=== PATIENT | male | born 1995 | race Caucasian/White ===

== ENCOUNTER 2017-08-11 10:31 | Emergency (ER) | payer MEDICAID ==
[~2017-08-11] VITALS: Ht 172.7 cm; Wt 61.2 kg
[~2017-08-11 10:31] MED LIST: GLU850 PO
[2017-08-11 10:34] VITALS: BP_SYST 111
[2017-08-11] MEDS ORDERED: NACL 0.9% 1,000 ML IV ONE ×3 (10:41→13:15)
[2017-08-11 11:11] LABS: BASOPHILS % (AUTO) 0.3 % (0.0-2.0); EOSINOPHILS # (AUTO) 0.1 K/uL (0.0-0.4); EOSINOPHILS % (AUTO) 0.5 % (0.0-4.0); HEMATOCRIT 50.5 % (36-54); HEMOGLOBIN 16.6 g/dL (14.0-18.0); LYMPHOCYTES # (AUTO) 1.9 K/uL (1.0-5.5); LYMPHOCYTES % (AUTO) 17.3 % (20.5-51.5); MEAN CORPUSCULAR HEMOGLOBIN 31 pg (27-31); MEAN CORPUSCULAR HGB CONC 33 % (32-36); MEAN CORPUSCULAR VOLUME 95 fL (79.0-98.0); MONOCYTES # (AUTO) 0.3 K/uL (0.0-1.0); MONOCYTES % (AUTO) 2.5 % (1.7-9.3); NEUTROPHILS # (AUTO) 8.8 K/uL (1.8-7.7); NEUTROPHILS % (AUTO) 79.4 % (40.0-70.0); PLATELET COUNT (AUTO) 386 K/uL (130-430); RED BLOOD CELL COUNT(AUTO) 5.34 MIL/uL (4.2-6.2); RED CELL DISTRIBUTION WIDTH 10.6 % (9.0-15.0); WHITE BLOOD COUNT (AUTO) 11.1 K/uL (4.8-10.8)
[2017-08-11 11:22] LABS: CALCIUM 9.6 mg/dL (8.4-11.0); CREATININE 0.88 mg/dL (0.55-1.30)
[2017-08-11 11:27] LABS: ALBUMIN 4.5 g/dL (3.4-4.8); TOTAL BILIRUBIN 0.8 mg/dL (0.0-1.0)
[2017-08-11 11:45] LABS: INR 1.1 (0.80-1.20); PROTHROMBIN TIME 10.9 SECS (9.5-12.5)
[2017-08-11] MEDS ORDERED: INSULIN REGULAR, HUMAN 10 UNITS/0.1 ML INJ IVP ONE ×2 (12:00)
[2017-08-11 12:41] LABS: BILIRUBIN,URINE NEGATIVE (NEGATIVE); BLOOD, URINE NEGATIVE (NEGATIVE); CLARITY/URINE CLEAR (CLEAR); COLOR,URINE YELLOW (YELLOW); GLUCOSE,URINE 2+ (NEGATIVE); KETONES,URINE 3+ (NEGATIVE); LEUKOCYTE ESTERASE ,URINE NEGATIVE (NEGATIVE); NITRITE, URINE NEGATIVE (NEGATIVE); PH,URINE 5.5 (5.0-8.0); PROTEIN URINE NEGATIVE (NEGATIVE); UROBILINOGEN,URINE 0.2 (0.2-1.0)
[2017-08-11 12:49] LABS: BACTERIA,URINE FEW /HPF (None Seen); RBC,URINE 0-3 /HPF (0-3); WBC,URINE 0-3 /HPF (0-3)
[2017-08-11 12:50] LABS: MUCUS,URINE 1+ /LPF (None Seen)
[2017-08-11 13:51] LABS: CALCIUM 8.8 mg/dL (8.4-11.0); CREATININE 0.73 mg/dL (0.55-1.30)
[2017-08-11 14:49] VITALS: BP_SYST 115
== END 2017-08-11 14:49 | disposition home or self-care (01) ==
LOC: SED 10:31
DX: E11.43 Type 2 diabetes mellitus with diabetic autonomic (poly)neuropathy (principal); K31.84 Gastroparesis; E86.0 Dehydration
CPT/HCPCS: 36415; 80048; 80053; 81000; 82150; 82962; 83690; 85025; 85610; 85730; 96361; 96374; 99284; J1815; J7030

== ENCOUNTER 2018-10-09 02:32 | Inpatient (IN) | payer MEDICAID ==
[~2018-10-09] VITALS: Ht 172.7 cm; Wt 56.7 kg
[2018-10-09 02:33] VITALS: BP_SYST 135
--- NOTE | 2018-10-09 02:40 | NUR ---
Patient to ER bed 8 to gown for evaluation. Side rails up. Report given from DERECK Mclean.
--- NOTE | 2018-10-09 02:47 | NUR ---
ER Dr. Joyner at bedside examining patient.
--- NOTE | 2018-10-09 02:50 | NUR ---
Ignacia lui in ED - 10/09/18 at 0250 by [email or web address] MYKEL Heck at bedside examining patient.
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
[2018-10-09] MEDS ORDERED: NACL 0.9% 1,000 ML IV SCH (02:54)
[2018-10-09] MEDS ORDERED: INSULIN REGULAR, HUMAN 10 UNITS/0.1 ML INJ IVP ONE ×2 (03:00→04:45)
--- NOTE | 2018-10-09 03:22 | NUR ---
Note sania in EDM - 10/09/18 at 0645 by [email or web address] Pt medicated with novolin R IVP and fluids per MD order. Tolerated well. Will cont. to monitor.
--- NOTE | 2018-10-09 03:22 | NUR ---
Pt medicated with novolin R 10 units IVP and fluids per MD order. Tolerated well. Will cont. to monitor.
[2018-10-09] MEDS ORDERED: INSULIN REGULAR, HUMAN 10 UNITS/0.1 ML INJ ONE ×2 (03:27→05:09)
[2018-10-09 03:28] LABS: BILIRUBIN,URINE NEGATIVE (NEGATIVE); BLOOD, URINE NEGATIVE (NEGATIVE); CLARITY/URINE CLEAR (CLEAR); COLOR,URINE YELLOW (YELLOW); GLUCOSE,URINE 3+ (NEGATIVE); KETONES,URINE 1+ (NEGATIVE); LEUKOCYTE ESTERASE ,URINE NEGATIVE (NEGATIVE); NITRITE, URINE NEGATIVE (NEGATIVE); PROTEIN URINE NEGATIVE (NEGATIVE); UROBILINOGEN,URINE 0.2 (0.2-1.0)
--- NOTE | 2018-10-09 03:34 | NUR ---
RT at bedside obtaining ABG specimen.
[2018-10-09 03:37] LABS: BASOPHILS # (AUTO) 0.4 K/uL (0.0-0.2); BASOPHILS % (AUTO) 2.5 % (0.0-2.0); EOSINOPHILS # (AUTO) 0.1 K/uL (0.0-0.4); EOSINOPHILS % (AUTO) 0.8 % (0.0-4.0); HEMATOCRIT 44.2 % (36-54); HEMOGLOBIN 14.8 g/dL (14.0-18.0); LYMPHOCYTES # (AUTO) 2.6 K/uL (1.0-5.5); LYMPHOCYTES % (AUTO) 17.6 % (20.5-51.5); MEAN CORPUSCULAR HEMOGLOBIN 32 pg (27-31); MEAN CORPUSCULAR HGB CONC 34 % (32-36); MEAN CORPUSCULAR VOLUME 95 fL (79.0-98.0); MONOCYTES # (AUTO) 1.1 K/uL (0.0-1.0); MONOCYTES % (AUTO) 7.2 % (1.7-9.3); NEUTROPHILS # (AUTO) 10.5 K/uL (1.8-7.7); NEUTROPHILS % (AUTO) 71.9 % (40.0-70.0); PLATELET COUNT (AUTO) 398 K/uL (130-430); RED BLOOD CELL COUNT(AUTO) 4.63 MIL/uL (4.2-6.2); RED CELL DISTRIBUTION WIDTH 12.4 % (9.0-15.0); WHITE BLOOD COUNT (AUTO) 14.7 K/uL (4.8-10.8)
[2018-10-09 03:54] LABS: ACETONE, SERUM MODERATE (NEGATIVE)
[2018-10-09 03:56] LABS: ANION GAP 16 (5-15); CALCIUM 8.6 mg/dL (8.4-11.0); CHLORIDE 94 mmol/L (98-107); CREATININE 0.99 mg/dL (0.55-1.30); POTASSIUM 3.9 mmol/L (3.5-5.1); SODIUM SERUM 130 mmol/L (136-145); UREA NITROGEN, BLOOD 11 mg/dL (8-21)
[2018-10-09 03:57] LABS: ALANINE AMINOTRANSFERASE 38 U/L (12-78); ALBUMIN 3.7 g/dL (3.4-4.8); ASPARTATE AMINOTRANSFERASE 27 U/L (10-37); PHOSPHORUS 3.5 mg/dL (2.7-4.5); TOTAL BILIRUBIN 0.6 mg/dL (0.0-1.0)
[2018-10-09 03:58] LABS: GFR AFRICAN AMERICAN 122 mL/min (>90)
[2018-10-09 03:59] LABS: GLUCOSE 571 mg/dL (70-99)
[2018-10-09 04:02] LABS: BACTERIA,URINE FEW /HPF (None Seen); RBC,URINE 0-3 /HPF (0-3); WBC,URINE 0-3 /HPF (0-3)
--- NOTE | 2018-10-09 05:11 | NUR ---
Note sania in EDM - 10/09/18 at 0645 by [email or web address] Pt medicated with R novolin insulin IVP per MD order. Tolerating well. WIll cont. to monitor.
--- NOTE | 2018-10-09 05:11 | NUR ---
Pt medicated with R novolin insulin 5 units IVP per MD order. Tolerating well. WIll cont. to monitor.
[2018-10-09 05:32] LABS: CALCIUM 7.8 mg/dL (8.4-11.0); CREATININE 0.98 mg/dL (0.55-1.30); POTASSIUM 3.6 mmol/L (3.5-5.1)
--- NOTE | 2018-10-09 06:00 | NUR ---
Dr. Joyner on the phone speaking with Dr. Jones in regards to admission.
[2018-10-09] MEDS ORDERED: INSU100I30 SQ (06:14)
[2018-10-09] MEDS ORDERED: INSU300I SQ (06:14)
--- NOTE | 2018-10-09 06:15 | NUR ---
Note sania in EDM - 10/09/18 at 0652 by [email or web address] Patient will be admitted to care of DR. Jerome. Admitted to Med surg unit. Will go to room 126B. Belongings list completed. Summary report printed. Report will be given at bedside.
--- NOTE | 2018-10-09 06:25 | NUR ---
Transfer to [facility]. Licensed nurse present. IV present no signs or symptoms of infiltration.
--- NOTE | 2018-10-09 06:25 | NUR ---
ADMISSION NOTE Received patient from ER via sunny, received report from DERECK Baker. Patient admitted with diagnosis of hyperglycemia and dehydration. Patient oriented to hospital routine, call light, toileting and safety-patient verbalized understanding.
[2018-10-09] MEDS ORDERED: INSULIN REGULAR, HUMAN 100 UNITS/ML, 10 ML VIAL (novoLIN R) SUBCUT PRN (06:30)
[2018-10-09] MEDS ORDERED: KCL 20 mEq in 0.45% NS 1000 mL 1,000 ML IV ONE (06:30)
[2018-10-09 06:43] VITALS: BP_SYST 132
--- NOTE | 2018-10-09 07:07 | NUR ---
CONSULTATION PAGED REASON FOR CONSULTATION:HYPERGLYCEMIA WAS CONSULT CALLED?Y PERSON WHO WAS NOTIFIED:WIN CONSULTING PHYSICIAN:MICHELA SANDERS [employer] CONSULTANT SPECIALTY:ENDOCRINE [employer] CONSULTANT PHONE NUMBER:[phone] ORDERING PHYSICIAN:CARYN SHAFFER
[2018-10-09 08:00] VITALS: BP_SYST 132
--- NOTE | 2018-10-09 08:00 | NUR ---
AM NOTES IN bed, awake. complain of generalized pain/soreness on his body. IVF from ER infusing at this time. Oriented to room set up and call light use. safety precaution observed. call light in reach. will monitor.
--- NOTE | 2018-10-09 09:00 | NUR ---
notes- pt is eating his breakfast at this time.
--- NOTE | 2018-10-09 10:00 | NUR ---
notes assisted to the bathroom and voided. no distress noted.
--- NOTE | 2018-10-09 10:01 | NUR ---
IVF- still waiting for the IV fluids from the pharmacy at this time.
--- NOTE | 2018-10-09 10:45 | NUR ---
PAGED DR. VINSON FOR PATIENT ADAM, JOSE. [phone]
--- NOTE | 2018-10-09 10:59 | NUR ---
notes- Paged DR. jeff re- pain medication.
--- NOTE | 2018-10-09 11:16 | NUR ---
notes Blood sugar is 507, pt is awake, alert and oriented. waiting for DR. Jones to call back. will give insulin as ordered.
--- NOTE | 2018-10-09 11:54 | NUR ---
Notes- spoke with Dr. Jones and made aware of blood sugar of 507 and was given 12 units of regular insulin. MD ordered to give additional 3 units of regular insulin.
[2018-10-09] MEDS ORDERED: KETOROLAC TROMETHAMINE 15 MG VIAL IVP PRN (12:00)
[2018-10-09] MEDS ORDERED: INSULIN REGULAR, HUMAN 100 UNITS/ML, 10 ML VIAL SUBCUT ONE (12:00)
[2018-10-09 12:06] VITALS: BP_SYST 131
--- NOTE | 2018-10-09 14:20 | NUR ---
MD ROUNDS SEEN BY DR. HO AT BEDSIDE.
[2018-10-09] MEDS: POTASSIUM CHLORIDE 20 MEQ in 0.45% NACL 1,000 ML IV SCH ×3 (14:45→18:41)
--- NOTE | 2018-10-09 15:50 | NUR ---
NOTES- RESTING, FAMILY AT BEDSIDE. PAIN IS CONTROLLED. NO DISTRESS NOTED.
[2018-10-09 16:46] VITALS: BP_SYST 126
[2018-10-09] MEDS: INSULIN ASPART 100 UNITS/ML, 10 ML VIAL SUBCUT SCH (17:00)
--- NOTE | 2018-10-09 17:40 | NUR ---
Notes- blood sugar is 74. hold insulin at this time. pt is eating dinner at this time.
[2018-10-09 17:48] LABS: ALBUMIN 3.3 g/dL (3.4-4.8); CALCIUM 8.2 mg/dL (8.4-11.0); CREATININE 0.65 mg/dL (0.55-1.30); POTASSIUM 3.2 mmol/L (3.5-5.1); TOTAL BILIRUBIN 0.8 mg/dL (0.0-1.0)
--- NOTE | 2018-10-09 18:09 | NUR ---
PAGED PAGED DOCTOR HO
--- NOTE | 2018-10-09 18:20 | NUR ---
Notes- spoke to Dr. Bradford and made aware of labs results. new orders received.
[2018-10-09] MEDS ORDERED: POTASSIUM CHLORIDE 20 MEQ TAB.PRT.SR PO ONE (18:30)
[2018-10-09] MEDS ORDERED: INSULIN ASPART 100 UNITS/ML, 10 ML VIAL SUBCUT ONE (19:00)
--- NOTE | 2018-10-09 19:02 | NUR ---
NOTES- IN BED, WATCHING TV. FAMILY AT BEDSIDE. NO COMPLAINTS. NEEDS ATTENDED. ENDORSE
--- NOTE | 2018-10-09 19:20 | NUR ---
Initial Note Received patient awake, alert and oriented with family at the bedside. No SOB noted. Denies any pain or n/v at this time. Skin intact, no peripheral edema noted. IVF infusing. Ambulates well with steady gait. Call light within reach. Bed alarm refused and at lowest position at all times. Care and monitoring will be provided. Needs attended. Kept warm and comfortable.
[2018-10-09 20:00] VITALS: BP_SYST 138
--- NOTE | 2018-10-09 20:20 | NUR ---
RN Note Latest blood sugar was 119, no coverage given. Given sugar free jello per patient's request. Family at the bedside. No complaints at this time. Needs attended.
--- NOTE | 2018-10-09 22:00 | NUR ---
RN Note Family left an hour ago. Patient sleeping at this time. No SOB or grimacing noted.
[2018-10-10 00:10] VITALS: BP_SYST 117
[2018-10-10] MEDS: POTASSIUM CHLORIDE 20 MEQ in 0.45% NACL 1,000 ML IV SCH ×3 (01:00→15:32)
--- NOTE | 2018-10-10 01:00 | NUR ---
RN Note Asleep, moves/turns occasionally. Family at the bedside. No distress noted. IVF infusing.
--- NOTE | 2018-10-10 03:30 | NUR ---
RN Note Patient sleeping comfortably in bed. IVF infusing. No signs of acute distress at this time. Repositions himself.
[2018-10-10 06:19] LABS: ANION GAP 7 (5-15); CALCIUM 7.8 mg/dL (8.4-11.0); CHLORIDE 106 mmol/L (98-107); CREATININE 0.54 mg/dL (0.55-1.30); GLUCOSE 152 mg/dL (70-99); PHOSPHORUS 4.6 mg/dL (2.7-4.5); POTASSIUM 3.9 mmol/L (3.5-5.1); SODIUM SERUM 137 mmol/L (136-145); UREA NITROGEN, BLOOD 7 mg/dL (8-21)
[2018-10-10 06:33] LABS: BASOPHILS % (AUTO) 0.4 % (0.0-2.0); EOSINOPHILS # (AUTO) 0.2 K/uL (0.0-0.4); EOSINOPHILS % (AUTO) 1.7 % (0.0-4.0); HEMATOCRIT 37.7 % (36-54); HEMOGLOBIN 12.8 g/dL (14.0-18.0); LYMPHOCYTES # (AUTO) 4.2 K/uL (1.0-5.5); LYMPHOCYTES % (AUTO) 40.7 % (20.5-51.5); MEAN CORPUSCULAR HEMOGLOBIN 32 pg (27-31); MEAN CORPUSCULAR HGB CONC 34 % (32-36); MEAN CORPUSCULAR VOLUME 95 fL (79.0-98.0); MONOCYTES # (AUTO) 0.9 K/uL (0.0-1.0); MONOCYTES % (AUTO) 8.5 % (1.7-9.3); NEUTROPHILS % (AUTO) 48.7 % (40.0-70.0); PLATELET COUNT (AUTO) 302 K/uL (130-430); RED BLOOD CELL COUNT(AUTO) 3.98 MIL/uL (4.2-6.2); RED CELL DISTRIBUTION WIDTH 12.5 % (9.0-15.0); WHITE BLOOD COUNT (AUTO) 10.3 K/uL (4.8-10.8)
[2018-10-10] MEDS: INSULIN ASPART 100 UNITS/ML, 10 ML VIAL (NovoLOG) SUBCUT PRN ×2 (06:38→12:21)
[2018-10-10] MEDS: INSULIN ASPART 100 UNITS/ML, 10 ML VIAL SUBCUT SCH ×2 (06:39→12:20)
--- NOTE | 2018-10-10 06:50 | NUR ---
End Note Afebrile. VS stable. No complain of SOB, n/v or pain throughout the night. Family at the bedside. Self reposition. Ambulates to the bathroom with minimal assist and with steady gait. IVF infusing. Labs today. Latest blood sugar was 156, coverage given plus the scheduled insulins. Given sandwich at the time insulin was given. Needs attended. Care and monitoring provided per protocol. Call light within reach. Bed alarm refused and bed at lowest position at all times. Kept warm and comfortable.
[2018-10-10 06:52] LABS: GFR AFRICAN AMERICAN 245 mL/min (>90)
[2018-10-10 07:10] LABS: ACETONE, SERUM NEGATIVE (NEGATIVE)
--- NOTE | 2018-10-10 07:20 | NUR ---
Initial note: Patient is sleeping comfortably with family at bedside, no sign of distress, on 0.45% NS +20mEq KCL IVF @ 150 ml/hr infusing via Rt. AC # 20G, no sign of infiltration.
[2018-10-10] MEDS ORDERED: ENOXAPARIN SODIUM 30 MG/0.3 ML SYRINGE SUBCUT SCH (09:00)
--- NOTE | 2018-10-10 10:26 | NUR ---
RN round: Patient is alert, oriented, resting on bed comfortably, denies any pain or discomfort.
[2018-10-10 12:47] VITALS: BP_SYST 102
--- NOTE | 2018-10-10 15:35 | NUR ---
Dietitian Recommendations * Recommend continuing CCHO diet per MD * FNS dept will offer 3 snacks per day in between meals * Encourage nutrient intake to prevent further wt loss LP, RD Please refer to Nutrition Assessment for details.
[2018-10-10 16:38] VITALS: BP_SYST 110
--- NOTE | 2018-10-10 17:00 | NUR ---
ROUND: DR. HO MAKES ROUND. INFORM HIM ABOUT BS RESULTS, AND HE HAS CHANGED NEW DOSES OD INSULIN, AND ALSO DECREASE IVF TO 100 ML/HR.
--- NOTE | 2018-10-10 18:51 | NUR ---
CLOSING NOTE: PATIENT IS STABLE, TOLERATING DIET WELL AND BS CONTROLLED. DR. HO HAS CLEARED HIM FOR DC, BUT STILL WAITING FOR DR. VINSON TO MAKE ROUND.
--- NOTE | 2018-10-10 19:10 | NUR ---
OPENING NOTE RECEIVED CARE OF PT AND BEDSIDE REPORT. DR. VINSON AT BEDSIDE, PLAN TO D/C PT TONIGHT. PT AAOX4, NO ACUTE DISTRESS. WILL MONITOR.
[2018-10-10 19:33] VITALS: BP_SYST 118
[2018-10-10 20:00] VITALS: BP_SYST 118
--- NOTE | 2018-10-10 20:11 | NUR ---
D/C DISCHARGE INSTRUCTIONS GIVEN, BELONGINGS SENT HOME WITH PT, D/C IV. NO ACUTE DISTRESS, PT VERBALIZED UNDERSTANDING OF DISCHARGE INSTRUCTIONS.
[2018-10-11] MEDS ORDERED: INSULIN ASPART 100 UNITS/ML, 10 ML VIAL SUBCUT SCH (07:00)
== END 2018-10-10 20:11 | disposition home or self-care (01) | DRG 420 ==
LOC: SED 02:32 → SMU 06:24
PROVIDERS: ADMIT Family Medicine; ATTEND Family Medicine
DX: E10.10 Type 1 diabetes mellitus with ketoacidosis without coma (principal); E87.8 Other disorders of electrolyte and fluid balance, not elsewhere classified; R65.10 Systemic inflammatory response syndrome (SIRS) of non-infectious origin without acute organ dysfunction; E87.1 Hypo-osmolality and hyponatremia; T14.90XA Injury, unspecified, initial encounter; E78.00 Pure hypercholesterolemia, unspecified; V49.9XXA Car occupant (driver) (passenger) injured in unspecified traffic accident, initial encounter; Y93.89 Activity, other specified; Y92.89 Other specified places as the place of occurrence of the external cause; Y99.8 Other external cause status
CPT/HCPCS: 36415; 36600; 80048; 80053; 81000-TC; 82009-TC; 82803-TC; 82962; 83036; 83735-TC; 84100-TC; 85025; 96361; 96374; 96376; 99285; J1650; J1815; J1885; J3480

== ENCOUNTER 2018-11-29 05:48 | Emergency (ER) | payer MEDICAID ==
[~2018-11-29] VITALS: Ht 172.7 cm; Wt 55.3 kg
[~2018-11-29 05:48] MED LIST changes: -GLU850 PO; +INSU100I30 SQ; +INSU300I SQ
[2018-11-29 05:56] VITALS: BP_SYST 121
[2018-11-29] MEDS ORDERED: ONDANSETRON HCL 4 MG/2 ML VIAL IVP ONE (06:15)
[2018-11-29] MEDS ORDERED: NACL 0.9% 1,000 ML IV ONE ×2 (06:15→07:30)
[2018-11-29 06:31] LABS: HEMATOCRIT 46.7 % (36-54); HEMOGLOBIN 15.8 g/dL (14.0-18.0); MEAN CORPUSCULAR HEMOGLOBIN 33 pg (27-31); MEAN CORPUSCULAR VOLUME 97 fL (79.0-98.0); WHITE BLOOD COUNT (AUTO) 10.5 K/uL (4.8-10.8)
[2018-11-29 06:32] LABS: BASOPHILS # (AUTO) 0.1 K/uL (0.0-0.2); BASOPHILS % (AUTO) 0.7 % (0.0-2.0); EOSINOPHILS # (AUTO) 0.1 K/uL (0.0-0.4); EOSINOPHILS % (AUTO) 0.7 % (0.0-4.0); LYMPHOCYTES # (AUTO) 3.1 K/uL (1.0-5.5); MEAN CORPUSCULAR HGB CONC 34 % (32-36); MONOCYTES # (AUTO) 0.7 K/uL (0.0-1.0); MONOCYTES % (AUTO) 6.9 % (1.7-9.3); NEUTROPHILS # (AUTO) 6.5 K/uL (1.8-7.7); NEUTROPHILS % (AUTO) 61.7 % (40.0-70.0); PLATELET COUNT (AUTO) 402 K/uL (130-430); RED CELL DISTRIBUTION WIDTH 13.2 % (9.0-15.0)
[2018-11-29 06:57] LABS: CALCIUM 8.9 mg/dL (8.4-11.0); CREATININE 1.21 mg/dL (0.55-1.30); POTASSIUM 3.4 mmol/L (3.5-5.1)
[2018-11-29 08:06] VITALS: BP_SYST 121
== END 2018-11-29 08:06 | disposition home or self-care (01) ==
LOC: SED 05:48
DX: E11.65 Type 2 diabetes mellitus with hyperglycemia (principal); R11.2 Nausea with vomiting, unspecified; Z79.4 Long term (current) use of insulin
CPT/HCPCS: 36415; 36600; 80048; 82803; 82962; 85025; 96361; 96374; 99283; J2405; J7030

== ENCOUNTER 2019-01-21 19:06 | Emergency (ER) | payer MEDICAID ==
[~2019-01-21] VITALS: Ht 172.7 cm; Wt 57.6 kg
[2019-01-21 19:33] VITALS: BP_SYST 133
[2019-01-21] MEDS ORDERED: NACL 0.9% 2,000 ML IV ONE (20:00)
[2019-01-21 20:12] LABS: BASOPHILS # (AUTO) 0.1 K/uL (0.0-0.2); BASOPHILS % (AUTO) 1.3 % (0.0-2.0); EOSINOPHILS # (AUTO) 0.1 K/uL (0.0-0.4); EOSINOPHILS % (AUTO) 1.2 % (0.0-4.0); HEMATOCRIT 43.2 % (36-54); HEMOGLOBIN 14.6 g/dL (14.0-18.0); LYMPHOCYTES # (AUTO) 2.5 K/uL (1.0-5.5); LYMPHOCYTES % (AUTO) 29.9 % (20.5-51.5); MEAN CORPUSCULAR HEMOGLOBIN 33 pg (27-31); MEAN CORPUSCULAR HGB CONC 34 % (32-36); MEAN CORPUSCULAR VOLUME 97 fL (79.0-98.0); MONOCYTES # (AUTO) 0.6 K/uL (0.0-1.0); MONOCYTES % (AUTO) 6.7 % (1.7-9.3); NEUTROPHILS % (AUTO) 60.9 % (40.0-70.0); PLATELET COUNT (AUTO) 361 K/uL (130-430); RED BLOOD CELL COUNT(AUTO) 4.44 MIL/uL (4.2-6.2); RED CELL DISTRIBUTION WIDTH 12.8 % (9.0-15.0); WHITE BLOOD COUNT (AUTO) 8.2 K/uL (4.8-10.8)
[2019-01-21 20:23] LABS: ANION GAP 10 (5-15); CALCIUM 9.3 mg/dL (8.4-11.0); CHLORIDE 98 mmol/L (98-107); CREATININE 0.92 mg/dL (0.55-1.30); GLUCOSE 394 mg/dL (70-99); POTASSIUM 3.9 mmol/L (3.5-5.1); SODIUM SERUM 136 mmol/L (136-145); UREA NITROGEN, BLOOD 11 mg/dL (8-21)
[2019-01-21 20:28] LABS: GFR AFRICAN AMERICAN 131 mL/min (>90)
[2019-01-21 20:29] LABS: ALANINE AMINOTRANSFERASE 45 U/L (12-78); ALBUMIN 3.4 g/dL (3.4-4.8); ASPARTATE AMINOTRANSFERASE 40 U/L (10-37); TOTAL BILIRUBIN 0.4 mg/dL (0.0-1.0)
[2019-01-21 20:34] LABS: ACETONE, SERUM NEGATIVE (NEGATIVE)
[2019-01-21] MEDS ORDERED: INSULIN REGULAR, HUMAN 10 UNITS/0.1 ML INJ IVP ONE (22:15)
[2019-01-21 23:21] VITALS: BP_SYST 128
== END 2019-01-21 23:19 | disposition home or self-care (01) ==
LOC: SED 19:06
DX: E10.65 Type 1 diabetes mellitus with hyperglycemia (principal); E86.0 Dehydration; Z79.4 Long term (current) use of insulin
CPT/HCPCS: 36415; 80053; 81002; 82009; 85025; 96361; 96374; 99283; J1815; J7030; 82962

== ENCOUNTER 2019-03-30 02:07 | Inpatient (IN) | payer MEDICAID ==
[~2019-03-30] VITALS: Ht 170.2 cm; Wt 55.3 kg
[2019-03-30 02:12] VITALS: BP_SYST 135
[2019-03-30] MEDS ORDERED: NACL 0.9% 1,000 ML IV ONE ×2 (02:27→04:33)
[2019-03-30] MEDS ORDERED: INSULIN REGULAR, HUMAN 10 UNITS/0.1 ML INJ IVP ONE (02:30)
[2019-03-30] MEDS ORDERED: ONDANSETRON HCL 4 MG/2 ML VIAL IVP ONE (02:30)
[2019-03-30 02:47] LABS: BASOPHILS # (AUTO) 0.1 K/uL (0.0-0.2); BASOPHILS % (AUTO) 0.8 % (0.0-2.0); EOSINOPHILS % (AUTO) 0.1 % (0.0-4.0); HEMATOCRIT 43.5 % (36-54); HEMOGLOBIN 14.9 g/dL (14.0-18.0); LYMPHOCYTES # (AUTO) 2.2 K/uL (1.0-5.5); LYMPHOCYTES % (AUTO) 21.7 % (20.5-51.5); MEAN CORPUSCULAR HEMOGLOBIN 34 pg (27-31); MEAN CORPUSCULAR HGB CONC 34 % (32-36); MEAN CORPUSCULAR VOLUME 98 fL (79.0-98.0); MONOCYTES # (AUTO) 0.8 K/uL (0.0-1.0); MONOCYTES % (AUTO) 8.2 % (1.7-9.3); NEUTROPHILS % (AUTO) 69.2 % (40.0-70.0); PLATELET COUNT (AUTO) 391 K/uL (130-430); RED BLOOD CELL COUNT(AUTO) 4.43 MIL/uL (4.2-6.2); RED CELL DISTRIBUTION WIDTH 12.9 % (9.0-15.0); WHITE BLOOD COUNT (AUTO) 10.2 K/uL (4.8-10.8)
[2019-03-30 02:59] LABS: ANION GAP 25 (5-15); CALCIUM 8.5 mg/dL (8.4-11.0); CHLORIDE 93 mmol/L (98-107); CREATININE 1.69 mg/dL (0.55-1.30); POTASSIUM 3.4 mmol/L (3.5-5.1); SODIUM SERUM 131 mmol/L (136-145); UREA NITROGEN, BLOOD 8 mg/dL (8-21)
[2019-03-30 03:02] LABS: GFR AFRICAN AMERICAN 65 mL/min (>90)
[2019-03-30 03:03] LABS: ACETONE, SERUM SMALL (NEGATIVE)
[2019-03-30 03:05] LABS: ALANINE AMINOTRANSFERASE 80 U/L (12-78); ALBUMIN 3.8 g/dL (3.4-4.8); ASPARTATE AMINOTRANSFERASE 69 U/L (10-37); TOTAL BILIRUBIN 0.5 mg/dL (0.0-1.0)
[2019-03-30 03:08] LABS: GLUCOSE 423 mg/dL (70-99)
[2019-03-30 03:14] LABS: BILIRUBIN,URINE NEGATIVE (NEGATIVE); BLOOD, URINE NEGATIVE (NEGATIVE); CLARITY/URINE CLEAR (CLEAR); COLOR,URINE YELLOW (YELLOW); GLUCOSE,URINE 3+ (NEGATIVE); KETONES,URINE 3+ (NEGATIVE); LEUKOCYTE ESTERASE ,URINE NEGATIVE (NEGATIVE); NITRITE, URINE NEGATIVE (NEGATIVE); PROTEIN URINE NEGATIVE (NEGATIVE); UROBILINOGEN,URINE 0.2 (0.2-1.0)
[2019-03-30 03:21] LABS: BACTERIA,URINE FEW /HPF (None Seen); RBC,URINE 0-3 /HPF (0-3); WBC,URINE 0-3 /HPF (0-3)
[2019-03-30] MEDS ORDERED: D5W 1,000 ML IV PRN (04:56)
[2019-03-30] MEDS ORDERED: DEXTROSE 50% JECT 50 ML DISP.SYRIN IVP PRN (05:00)
[2019-03-30] MEDS ORDERED: ONDANSETRON HCL 4 MG/2 ML VIAL IVP PRN (05:00)
[2019-03-30] MEDS ORDERED: HYDROcodone/ACETAMIN 7.5-325 MG TAB PO PRN (05:00)
[2019-03-30] MEDS ORDERED: GLUCOSE 15 GM GEL (in 37.5 GM TUBE) PO PRN (05:00)
[2019-03-30] MEDS ORDERED: ACETAMINOPHEN 500 MG TABLET PO PRN (05:00)
[2019-03-30] MEDS ORDERED: DOCUSATE SODIUM 100 MG/10 ML UDC PO PRN (05:00)
[2019-03-30] MEDS ORDERED: DIPHENHYDRAMINE INJ 50 MG/ML VIAL IVP ONE (05:15)
[2019-03-30] MEDS ORDERED: MORPHINE 4 MG/ML INJ. SYRINGE IVP ONE (05:15)
[2019-03-30 05:57] LABS: BARBITURATE, URINE NEGATIVE (NEG <=200); BENZODIAZEPINE, URINE NEGATIVE (NEG <=150); CANNABINOID, URINE NEGATIVE (NEG <=50); COCAINE, URINE NEGATIVE (NEG <=150); METHAMPHETAMINES SCREEN,URINE NEGATIVE (NEG <=500); OPIATE, URINE NEGATIVE (NEG <=100); PHENCYCLIDINE SCREEN,URINE NEGATIVE (NEG <=25); UR TRICYCLIC ANTIDEPRESSANTS NEGATIVE (NEG <=300); URINE AMPHETAMINE NEGATIVE (NEG <=500); URINE METHADONE NEGATIVE (NEG <=200); URINE OXYCODONE SCREEN NEGATIVE (NEG <=100); URINE PROPOXYPHENE SCREEN NEGATIVE (NEG <=300)
[2019-03-30 06:09] LABS: AMYLASE 41 U/L (0-100); ANION GAP 15 (5-15); CALCIUM 7.6 mg/dL (8.4-11.0); CHLORIDE 102 mmol/L (98-107); CREATININE 1.07 mg/dL (0.55-1.30); FREE T4 (FREE THYROXINE) 1.1 ng/dl (0.8-1.5); GLUCOSE 258 mg/dL (70-99); LIPASE 57 U/L (73-393); PHOSPHORUS 2.3 mg/dL (2.7-4.5); POTASSIUM 3.2 mmol/L (3.5-5.1); SODIUM SERUM 137 mmol/L (136-145); UREA NITROGEN, BLOOD 6 mg/dL (8-21)
[2019-03-30 06:11] LABS: GFR AFRICAN AMERICAN 110 mL/min (>90)
[2019-03-30] MEDS: NACL 0.9% 1,000 ML IV SCH ×3 (06:13→22:06)
[2019-03-30 06:31] LABS: INR 1.1 (0.80-1.20); PROTHROMBIN TIME 10.9 SECS (9.5-12.5)
[2019-03-30] MEDS: INSULIN LISPRO SLIDING SCALE 100 UNITS/ML VIAL (humaLOG) SUBCUT PRN ×3 (06:49→22:09)
[2019-03-30 06:53] VITALS: BP_SYST 110
[2019-03-30 07:40] LABS: CHOLESTEROL 152 mg/dL (<200); HDL CHOLESTEROL 52 mg/dL (>45); LDL CHOLESTEROL 78 mg/dL (<100); TRIGLYCERIDES 176 mg/dL (30-150)
[2019-03-30] MEDS: PANTOPRAZOLE SODIUM 40 MG TAB PO SCH (09:45)
[2019-03-30] MEDS ORDERED: INSU300I SQ (10:29)
[2019-03-30] MEDS ORDERED: INSULIN GLARGINE 100 UNITS/ML 10 ML VIAL SUBCUT ONE (11:15)
[2019-03-30] MEDS ORDERED: NAPH,MB-DB/K PH,MBDB 250 MG TAB PO ONE (11:15)
[2019-03-30] MEDS ORDERED: POTASSIUM CHLORIDE 40 MEQ, LIDOCAINE JECT 2% PF 100 MG 50 MG in NS 250 ML IV ONE (11:15)
[2019-03-30 11:24] VITALS: BP_SYST 112
[2019-03-30] MEDS ORDERED: metFORMIN HCL 500 MG TABLET PO ONE (12:00)
[2019-03-30 15:40] VITALS: BP_SYST 104
[2019-03-30] MEDS: metFORMIN HCL 500 MG TABLET PO SCH (17:20)
[2019-03-30 20:00] VITALS: BP_SYST 106
[2019-03-30] MEDS: INSULIN GLARGINE 100 UNITS/ML 10 ML VIAL SUBCUT SCH (22:12)
[2019-03-30 23:44] VITALS: BP_SYST 121
[2019-03-31 05:54] LABS: BASOPHILS # (AUTO) 0.1 K/uL (0.0-0.2); BASOPHILS % (AUTO) 0.7 % (0.0-2.0); EOSINOPHILS # (AUTO) 0.1 K/uL (0.0-0.4); EOSINOPHILS % (AUTO) 0.8 % (0.0-4.0); HEMATOCRIT 36.4 % (36-54); HEMOGLOBIN 12.5 g/dL (14.0-18.0); LYMPHOCYTES % (AUTO) 35.5 % (20.5-51.5); MEAN CORPUSCULAR HEMOGLOBIN 33 pg (27-31); MEAN CORPUSCULAR HGB CONC 34 % (32-36); MONOCYTES % (AUTO) 9.1 % (1.7-9.3); NEUTROPHILS # (AUTO) 6.1 K/uL (1.8-7.7); NEUTROPHILS % (AUTO) 53.9 % (40.0-70.0); PLATELET COUNT (AUTO) 266 K/uL (130-430); RED BLOOD CELL COUNT(AUTO) 3.79 MIL/uL (4.2-6.2); RED CELL DISTRIBUTION WIDTH 12.6 % (9.0-15.0); WHITE BLOOD COUNT (AUTO) 11.3 K/uL (4.8-10.8)
[2019-03-31 06:13] LABS: CALCIUM 8.1 mg/dL (8.4-11.0); CREATININE 0.73 mg/dL (0.55-1.30); PHOSPHORUS 4.1 mg/dL (2.7-4.5)
[2019-03-31] MEDS: NACL 0.9% 1,000 ML IV SCH ×2 (06:31→15:21)
[2019-03-31 07:02] LABS: MEAN CORPUSCULAR VOLUME 96 fL (79.0-98.0)
[2019-03-31 08:13] VITALS: BP_SYST 110
[2019-03-31] MEDS: PANTOPRAZOLE SODIUM 40 MG TAB PO SCH (08:23)
[2019-03-31] MEDS: metFORMIN HCL 500 MG TABLET PO SCH ×2 (08:23→18:02)
[2019-03-31] MEDS: INSULIN LISPRO SLIDING SCALE 100 UNITS/ML VIAL (humaLOG) SUBCUT PRN (11:55)
[2019-03-31 12:00] VITALS: BP_SYST 111
[2019-03-31 16:16] VITALS: BP_SYST 109
[2019-03-31 21:05] VITALS: BP_SYST 125
[2019-03-31] MEDS: INSULIN GLARGINE 100 UNITS/ML 10 ML VIAL SUBCUT SCH (21:58)
[2019-04-01] VITALS: BP_SYST 127
[2019-04-01 06:11] LABS: BASOPHILS % (AUTO) 0.7 % (0.0-2.0); EOSINOPHILS # (AUTO) 0.1 K/uL (0.0-0.4); EOSINOPHILS % (AUTO) 1.4 % (0.0-4.0); HEMATOCRIT 35.4 % (36-54); HEMOGLOBIN 12.1 g/dL (14.0-18.0); LYMPHOCYTES # (AUTO) 2.8 K/uL (1.0-5.5); LYMPHOCYTES % (AUTO) 40.5 % (20.5-51.5); MEAN CORPUSCULAR HEMOGLOBIN 33 pg (27-31); MEAN CORPUSCULAR HGB CONC 34 % (32-36); MEAN CORPUSCULAR VOLUME 96 fL (79.0-98.0); MONOCYTES # (AUTO) 0.6 K/uL (0.0-1.0); MONOCYTES % (AUTO) 9.3 % (1.7-9.3); NEUTROPHILS # (AUTO) 3.3 K/uL (1.8-7.7); NEUTROPHILS % (AUTO) 48.1 % (40.0-70.0); PLATELET COUNT (AUTO) 271 K/uL (130-430); RED BLOOD CELL COUNT(AUTO) 3.67 MIL/uL (4.2-6.2); WHITE BLOOD COUNT (AUTO) 6.8 K/uL (4.8-10.8)
[2019-04-01 06:30] LABS: CALCIUM 8.3 mg/dL (8.4-11.0); CREATININE 0.61 mg/dL (0.55-1.30)
[2019-04-01 08:03] VITALS: BP_SYST 139
[2019-04-01] MEDS: metFORMIN HCL 500 MG TABLET PO SCH (08:19)
[2019-04-01] MEDS: PANTOPRAZOLE SODIUM 40 MG TAB PO SCH (08:19)
[2019-04-01] MEDS: NACL 0.9% 1,000 ML IV SCH (08:20)
[2019-04-01 10:29] VITALS: BP_SYST 139
[2019-04-01] MEDS ORDERED: GLU500 PO (11:34)
[2019-04-01] MEDS ORDERED: INSU300I SQ (11:34)
[2019-04-01] MEDS ORDERED: INSU100I30 SQ (11:38)
[2019-04-01 12:05] VITALS: BP_SYST 134
== END 2019-04-01 13:00 | disposition home or self-care (01) | DRG 420 ==
LOC: SED 02:07 → STU 04:44 → SMU 10:30
PROVIDERS: ADMIT Family Medicine; ATTEND Family Medicine
DX: E11.00 Type 2 diabetes mellitus with hyperosmolarity without nonketotic hyperglycemic-hyperosmolar coma (NKHHC) (principal); E83.39 Other disorders of phosphorus metabolism; E11.65 Type 2 diabetes mellitus with hyperglycemia; D72.829 Elevated white blood cell count, unspecified; E87.6 Hypokalemia; E78.5 Hyperlipidemia, unspecified; E03.9 Hypothyroidism, unspecified; Z79.84 Long term (current) use of oral hypoglycemic drugs
CPT/HCPCS: 36415; 36600; 71045; 80048; 80053; 80061; 80307; 81000-TC; 82009-TC; 82150-TC; 82803-TC; 82962; 83036; 83605; 83690-TC; 83735-TC; 83880; 84100-TC; 84439; 84443-TC; 84484; 85025; 85610-TC; 85730-TC; 93005; 96361; 96374; 96375; 99285; J1200; J1815; J2270; J2405; J3480; J7030; J7050; J7120

== ENCOUNTER 2019-08-16 00:21 | Inpatient (IN) | payer MEDICAID ==
[2019-08-16] VITALS (8 sets, daily range): BP systolic 103–128
[~2019-08-16] VITALS: Ht 170.2 cm; Wt 58.1 kg
[~2019-08-16 00:21] MED LIST changes: +GLU500 PO
--- NOTE | 2019-08-16 01:38 | NUR ---
Patient triaged and placed in waiting room. VSS and patient appears in no acute distress at this time. Accompanied by friend and , awaiting available bed, and MD notified of need for MSE.
[2019-08-16 01:58] LABS: BASOPHILS # (AUTO) 0.1 K/uL (0.0-0.2); EOSINOPHILS % (AUTO) 0.2 % (0.0-4.0); HEMATOCRIT 44.3 % (36-54); HEMOGLOBIN 14.8 g/dL (14.0-18.0); LYMPHOCYTES # (AUTO) 1.9 K/uL (1.0-5.5); LYMPHOCYTES % (AUTO) 22.4 % (20.5-51.5); MEAN CORPUSCULAR HEMOGLOBIN 35 pg (27-31); MEAN CORPUSCULAR HGB CONC 33 % (32-36); MEAN CORPUSCULAR VOLUME 104 fL (79.0-98.0); MONOCYTES # (AUTO) 0.4 K/uL (0.0-1.0); MONOCYTES % (AUTO) 4.5 % (1.7-9.3); NEUTROPHILS # (AUTO) 6.1 K/uL (1.8-7.7); NEUTROPHILS % (AUTO) 71.9 % (40.0-70.0); PLATELET COUNT (AUTO) 398 K/uL (130-430); RED BLOOD CELL COUNT(AUTO) 4.28 MIL/uL (4.2-6.2); RED CELL DISTRIBUTION WIDTH 13.2 % (9.0-15.0); WHITE BLOOD COUNT (AUTO) 8.6 K/uL (4.8-10.8)
--- NOTE | 2019-08-16 02:30 | NUR ---
Placed in room 05. Placed on double end trimmer, blood pressure machine and pulse oximeter. To gown for exam. Side rails up. Report given to DERECK Granger.
--- NOTE | 2019-08-16 02:33 | NUR ---
Pt awake, alert, oriented x4. Pt states that he has high blood sugar. When tested, pt b/s was above 500. pt states he feels thirsty and dehydrated, weak. Pt states that he has history of DKA and has been seen at this facility multiple times for said conditions. Pt in no acute distress at this time. Pt restin [facility] ED bed, speaking on phone with family. Pt denies chest pain, nausea, vomiting, diarrhea, shortness of breath. VSS.
--- NOTE | 2019-08-16 02:50 | NUR ---
ER Dr. Calvin at bedside examining patient.
[2019-08-16 02:52] LABS: BILIRUBIN,URINE NEGATIVE (NEGATIVE); BLOOD, URINE NEGATIVE (NEGATIVE); CLARITY/URINE CLEAR (CLEAR); COLOR,URINE YELLOW (YELLOW); GLUCOSE,URINE 3+ (NEGATIVE); KETONES,URINE 1+ (NEGATIVE); LEUKOCYTE ESTERASE ,URINE NEGATIVE (NEGATIVE); NITRITE, URINE NEGATIVE (NEGATIVE); PROTEIN URINE NEGATIVE (NEGATIVE); UROBILINOGEN,URINE 0.2 (0.2-1.0)
[2019-08-16] MEDS ORDERED: NACL 0.9% 1,000 ML IV ONE (03:15)
[2019-08-16 03:23] LABS: ANION GAP 16 (5-15); CHLORIDE 95 mmol/L (98-107); CREATININE 0.95 mg/dL (0.55-1.30); POTASSIUM 4.5 mmol/L (3.5-5.1); SODIUM SERUM 133 mmol/L (136-145); UREA NITROGEN, BLOOD 13 mg/dL (8-21)
[2019-08-16 03:24] LABS: ALANINE AMINOTRANSFERASE 106 U/L (12-78); ALBUMIN 3.8 g/dL (3.4-4.8); ASPARTATE AMINOTRANSFERASE 120 U/L (10-37); TOTAL BILIRUBIN 0.7 mg/dL (0.0-1.0)
[2019-08-16 03:31] LABS: GFR AFRICAN AMERICAN 126 mL/min (>90); GLUCOSE 607 mg/dL (70-99)
--- NOTE | 2019-08-16 03:45 | NUR ---
Pt resting in ed bed comfortably. No distress at this time.
[2019-08-16] MEDS ORDERED: INSULIN REGULAR, HUMAN 10 UNITS/0.1 ML INJ IVP ONE (04:30)
--- NOTE | 2019-08-16 05:00 | NUR ---
Pt assisted to use restroom. Pt denies dizziness. Pt states continued general weakeness. Resturned to bed, resting. No acute distress.
[2019-08-16] MEDS ORDERED: NACL 0.9% 1,000 ML IV SCH (07:28)
[2019-08-16] MEDS ORDERED: INSULIN NPH 100 UNITS/ML 10 ML VIAL SUBCUT ONE (07:30)
--- NOTE | 2019-08-16 07:38 | NUR ---
Report given to DERECK Alcantar and DERECK Hood. All care endorsed. Pt VSS
--- NOTE | 2019-08-16 07:38 | NUR ---
Report given from Elkin HARDEN, pt in bed AO4, no pain, stable at this time
--- NOTE | 2019-08-16 07:48 | NUR ---
Fingerstick glucose taken, resulted 240.
[2019-08-16] MEDS: INSULIN REGULAR, HUMAN 100 UNITS/ML, 10 ML VIAL (humuLIN R) SUBCUT PRN ×3 (08:09→22:27)
--- NOTE | 2019-08-16 10:17 | NUR ---
Medication reconciliation completed with information provided by the patient. Any prior medication reconciliation on file was reviewed and corrected.
--- NOTE | 2019-08-16 10:25 | NUR ---
ADMISSION NOTE Received patient from ER via sunny, received report from LORENE HARDEN. Patient admitted with diagnosis of UNCONTROLLED DM. Patient oriented to hospital routine, call light, toileting and safety-patient verbalized understanding.
--- NOTE | 2019-08-16 10:35 | NUR ---
Patient will be admitted to care of Dr. Boggs. Admitted to tele unit. Will go to room 128-b. Belongings list completed. Complete and up to date summary report printed. SBAR report to be given at bedside with opportunity for questions.
[2019-08-16 11:12] LABS: BASOPHILS # (AUTO) 0.1 K/uL (0.0-0.2); BASOPHILS % (AUTO) 0.9 % (0.0-2.0); EOSINOPHILS % (AUTO) 0.1 % (0.0-4.0); HEMATOCRIT 38.3 % (36-54); HEMOGLOBIN 12.9 g/dL (14.0-18.0); LYMPHOCYTES % (AUTO) 25.1 % (20.5-51.5); MEAN CORPUSCULAR HEMOGLOBIN 34 pg (27-31); MEAN CORPUSCULAR HGB CONC 34 % (32-36); MEAN CORPUSCULAR VOLUME 102 fL (79.0-98.0); MONOCYTES # (AUTO) 0.8 K/uL (0.0-1.0); MONOCYTES % (AUTO) 6.3 % (1.7-9.3); NEUTROPHILS # (AUTO) 8.1 K/uL (1.8-7.7); NEUTROPHILS % (AUTO) 67.6 % (40.0-70.0); PLATELET COUNT (AUTO) 376 K/uL (130-430); RED BLOOD CELL COUNT(AUTO) 3.77 MIL/uL (4.2-6.2); RED CELL DISTRIBUTION WIDTH 13.1 % (9.0-15.0)
--- NOTE | 2019-08-16 11:20 | NUR ---
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
[2019-08-16 11:38] LABS: ALANINE AMINOTRANSFERASE 87 U/L (12-78); ALBUMIN 2.9 g/dL (3.4-4.8); ANION GAP 16 (5-15); ASPARTATE AMINOTRANSFERASE 72 U/L (10-37); CALCIUM 8.1 mg/dL (8.4-11.0); CHLORIDE 106 mmol/L (98-107); CREATININE 0.93 mg/dL (0.55-1.30); GLUCOSE 119 mg/dL (70-99); POTASSIUM 4.1 mmol/L (3.5-5.1); SODIUM SERUM 138 mmol/L (136-145); TOTAL BILIRUBIN 0.5 mg/dL (0.0-1.0); UREA NITROGEN, BLOOD 10 mg/dL (8-21)
[2019-08-16 11:43] LABS: GFR AFRICAN AMERICAN 129 mL/min (>90)
[2019-08-16 11:45] LABS: ACETONE, SERUM NEGATIVE (NEGATIVE)
--- NOTE | 2019-08-16 13:05 | NUR ---
TELE MONITOR CALLED RN, INFORMED THAT PT HR WAS 125-133/MIN RN WAS AT BEDSIDE WHEN REC CALL, PT IS AWAKE AND ORIENTED, WITH FRIEND AT BEDSDIE AND IS SITTING UP EATING LUNCH ASYMPTOMATIC, DENIES CHEST PAIN, VS REMAINS STABLE NO CHANGE TO BP, IV FLUIDS RUNNING AT 150ML/HR PER EMAR/ORDERS, AFEBRILE; RN CALLED DR PEARSON WHO ORDERED A STAT EKG AND STATED HE WAS ON THE WAY TO PT BEDSIDE FOR ADM ASSESSMENT AT THIS TIME AND WILL ASSESS HIM AT BEDSIDE
--- NOTE | 2019-08-16 13:15 | NUR ---
STAT EKG SHOWS SINUS TACHY AT 108; PT INTERMITTENTLY UP TO 110 ON TELE MONITOR, REMAINS WITH NO S/S STATES HE "FEELS FINE", TALKING AND LAUGHING WITH HIS FRIEND AT BEDSIDE; DR PEARSON CAME TO BEDSIDE AND ORDERED LR AT 150/HR IN ADDITION TO THE CURRENTLY INFUSION OF NS AT 150/HR (THUS TOTAL FOR THE DURATION OF THE CURRENT NS BAG WILL BE 300ML/HR FLUIDS) AFTER HIS ASSESSMENT OF PT; WILL CONT TO MONITOR; AT THIS TIME VS REMAINS STABLE NO CHANGE TO BP AND PT IS AFEBRILE; HR RANGES FORM 108-110/MIN NOW; PT DENIES CHEST PAIN NO SOB, NO HEADACHE NOW; PT MOST RECENT BLOOD GLUCOSE IS 97
[2019-08-16] MEDS: LR 1,000 ML IV SCH ×2 (14:31→22:25)
[2019-08-16 15:56] LABS: BARBITURATE, URINE NEGATIVE (NEG <=200); BENZODIAZEPINE, URINE NEGATIVE (NEG <=150); COCAINE, URINE NEGATIVE (NEG <=150); METHAMPHETAMINES SCREEN,URINE NEGATIVE (NEG <=500); URINE AMPHETAMINE NEGATIVE (NEG <=500); URINE METHADONE NEGATIVE (NEG <=200)
[2019-08-16 15:57] LABS: CANNABINOID, URINE NEGATIVE (NEG <=50); OPIATE, URINE NEGATIVE (NEG <=100); PHENCYCLIDINE SCREEN,URINE NEGATIVE (NEG <=25); UR TRICYCLIC ANTIDEPRESSANTS NEGATIVE (NEG <=300); URINE OXYCODONE SCREEN NEGATIVE (NEG <=100); URINE PROPOXYPHENE SCREEN NEGATIVE (NEG <=300)
[2019-08-16 17:01] LABS: CALCIUM 7.7 mg/dL (8.4-11.0); CREATININE 0.81 mg/dL (0.55-1.30); POTASSIUM 4.2 mmol/L (3.5-5.1)
[2019-08-16] MEDS ORDERED: metFORMIN HCL 500 MG TABLET PO SCH (18:00)
--- NOTE | 2019-08-16 20:20 | NUR ---
SBAR Report given to FERNANDO HARDEN .
--- NOTE | 2019-08-16 20:30 | NUR ---
TRANSFER OF CARE Late entry due to patient care. Report received from DERECK Jordan. Patient received lying in bed, watching TV, AOx4, no s/s of acute distress noted. Breathing is even and unlabored. Patient denies pain at this time. IVF infusing well, IV site patent, no signs of infiltration or infection noted Skin warm and dry to touch, no s/s of hypoglycemia noted. Call light with patient. Bed alarm off per patient's requested. Patient educated on its purpose and benefits. Patient demonstrated proper use of call light, instructed to call for any assistance needed. Will continue to monitor.
[2019-08-16] MEDS ORDERED: cefTRIAXone 1 GM IVPB PREMIX 50 ML IV ONE (21:41)
[2019-08-16] MEDS: cefTRIAXone 1 GM in D5W 50 ML IV SCH (22:25)
[2019-08-16] MEDS: INSULIN GLARGINE 100 UNITS/ML 10 ML VIAL SQ SCH (22:26)
--- NOTE | 2019-08-16 22:30 | NUR ---
ACCUCHECK/IV ANTIBIOTIC/IV BAG HUNG/REFUSED SCD Accucheck done at this time, BS at 177. PRN medication give per sliding scale, scheduled Lantus administered. IV antibiotic and IV bag hung at this time, infusing well, IV site patent, no signs of infiltration or infection noted. All needs met. Call light with patient. Patient refused SCDs, educated on its purpose and benefits, still refuses.
[2019-08-17] VITALS: BP_SYST 116
--- NOTE | 2019-08-17 00:04 | NUR ---
RECHECK BLOOD SUGAR Patient requested to have his BS checked, patient stated he is feeling weak and shake. Accucheck done, BS at 181. Patient offered snacks, provided by RN. Skin warm and dry to touch. Call light with patient. Will continue to monitor.
--- NOTE | 2019-08-17 02:00 | NUR ---
ROUNDS Patient in bed asleep at this time. No signs of discomfort noted. Chest rise and fall even bilaterally. IVF infusing well. Call light with patient. Will continue to monitor.
--- NOTE | 2019-08-17 04:00 | NUR ---
ROUNDS Patient in bed asleep. No signs of discomfort noted. Chest rise and fall even bilaterally. IVF infusing well. Call light with patient. Will continue to monitor.
[2019-08-17] MEDS: LR 1,000 ML IV SCH ×3 (05:16→16:36)
[2019-08-17 06:45] LABS: BASOPHILS # (AUTO) 0.1 K/uL (0.0-0.2); EOSINOPHILS # (AUTO) 0.2 K/uL (0.0-0.4); EOSINOPHILS % (AUTO) 2.6 % (0.0-4.0); HEMATOCRIT 36.2 % (36-54); HEMOGLOBIN 12.3 g/dL (14.0-18.0); LYMPHOCYTES # (AUTO) 4.1 K/uL (1.0-5.5); LYMPHOCYTES % (AUTO) 48.8 % (20.5-51.5); MEAN CORPUSCULAR HEMOGLOBIN 35 pg (27-31); MEAN CORPUSCULAR HGB CONC 34 % (32-36); MEAN CORPUSCULAR VOLUME 102 fL (79.0-98.0); MONOCYTES # (AUTO) 0.6 K/uL (0.0-1.0); MONOCYTES % (AUTO) 6.6 % (1.7-9.3); NEUTROPHILS # (AUTO) 3.4 K/uL (1.8-7.7); PLATELET COUNT (AUTO) 327 K/uL (130-430); RED BLOOD CELL COUNT(AUTO) 3.56 MIL/uL (4.2-6.2); RED CELL DISTRIBUTION WIDTH 12.8 % (9.0-15.0); WHITE BLOOD COUNT (AUTO) 8.3 K/uL (4.8-10.8)
--- NOTE | 2019-08-17 06:46 | NUR ---
CLOSING NOTES/HYPOGLYCEMIA/REASSESSMENT Patient in bed, awake, watching TV, AOX4, no s/s of acute distress noted. Breathing is even and unlabored. IVF infusing well, IV site is patent, no signs of infiltration or infection noted. ACCUCHECK done, BS was at 63. Patient stated that he feels ok and just hungry. Snacks were provided. Skin is warm and dry. Reassessed, BS was at 80. No s/s of hypoglycemia noted. All needs met throughout the shift. Fall and safety precautions maintained throughout the shift. Will continue to monitor until patient care is endorsed to oncoming dayshift nurse.
[2019-08-17 06:58] LABS: CALCIUM 7.8 mg/dL (8.4-11.0); CREATININE 0.56 mg/dL (0.55-1.30); POTASSIUM 3.5 mmol/L (3.5-5.1); TOTAL BILIRUBIN 0.4 mg/dL (0.0-1.0)
[2019-08-17 06:59] LABS: ALBUMIN 2.4 g/dL (3.4-4.8); PHOSPHORUS 4.4 mg/dL (2.7-4.5)
--- NOTE | 2019-08-17 07:20 | NUR ---
AM ROUNDS: PATIENT SLEEPING DURING ROUNDS. CALL LIGHT WITH IN REACH. BED LOCKED AT LOWEST POSITION. NO OTHER MANIFESTATION NOTED. STABLE.
[2019-08-17 08:30] VITALS: BP_SYST 103
--- NOTE | 2019-08-17 09:15 | NUR ---
RN ROUNDS: PATIENT ATE BREAKFAST WELL. NO PROBLEM.
[2019-08-17] MEDS: INSULIN REGULAR, HUMAN 100 UNITS/ML, 10 ML VIAL (humuLIN R) SUBCUT PRN ×3 (11:17→21:12)
--- NOTE | 2019-08-17 11:22 | NUR ---
Blood Sugar: Blood kgyzo=674ky/dl. Humulin R 2 units subq given per sliding scale. no problem.
[2019-08-17 12:08] VITALS: BP_SYST 99
--- NOTE | 2019-08-17 16:00 | NUR ---
MD ROUNDS; DR PEARSON EXAMINED THE PATIENT IN THE ROOM,WITH ORDERS DECREASED IVF RATE TO 50CC/H ORDERED. STABLE.
--- NOTE | 2019-08-17 16:25 | NUR ---
DC TELEMETRY: DOWNGRADED PATIENT TO MEDICAL SURGICAL ORDERED.
--- NOTE | 2019-08-17 17:22 | NUR ---
BLOOD SUGAR: BLOOD MSOMA=301IJ/DL,HUMULIN R 2 UNITS SUBQ GIVEN PER SLIDING SCALE,WITH NO PROBLEM.
[2019-08-17] MEDS: cefTRIAXone 1 GM in D5W 50 ML IV SCH (17:25)
[2019-08-17 17:27] VITALS: BP_SYST 132
--- NOTE | 2019-08-17 18:18 | NUR ---
CLOSING NOTES: PATIENT STABLE. CALL LIGHT WITH IN REACH. BED LOCKED AT LOWEST POSITION. CONDITION GUARDED.
[2019-08-17 19:54] VITALS: BP_SYST 122
--- NOTE | 2019-08-17 19:54 | NUR ---
Opening notes Pt AAOx4, VSS, no s/s distress noted. IVF infusing at ordered rate RAC 20G clear and patent. Call light within reach. Safety maintained. To monitor.
[2019-08-17] MEDS: INSULIN GLARGINE 100 UNITS/ML 10 ML VIAL SQ SCH (21:12)
[2019-08-18 00:47] VITALS: BP_SYST 117
--- NOTE | 2019-08-18 02:10 | NUR ---
Glucose checked Pt c/o feeling weak. Spot checked sugar 71, sandwich and snacks given. Pt's significant other ath the bedside. Safety maintained. Call light within reach. To monitor.
[2019-08-18] MEDS: LR 1,000 ML IV SCH (03:16)
--- NOTE | 2019-08-18 06:00 | NUR ---
Pt moved to RM 115 all belongings with pt.
[2019-08-18] MEDS: INSULIN REGULAR, HUMAN 100 UNITS/ML, 10 ML VIAL (humuLIN R) SUBCUT PRN (06:20)
--- NOTE | 2019-08-18 06:25 | NUR ---
Closing notes Pt AAOx4, blood sugar checked 183, 2 units Reg insulin administered per protocol. IVF infusing at ordered rate R. AC 20G clear and patent. Call Light within reach. Safety maintained. To endorse to AM nurse.
[2019-08-18 07:21] LABS: BASOPHILS # (AUTO) 0.1 K/uL (0.0-0.2); BASOPHILS % (AUTO) 0.9 % (0.0-2.0); EOSINOPHILS # (AUTO) 0.1 K/uL (0.0-0.4); EOSINOPHILS % (AUTO) 1.9 % (0.0-4.0); HEMATOCRIT 35.8 % (36-54); HEMOGLOBIN 12.4 g/dL (14.0-18.0); LYMPHOCYTES # (AUTO) 3.1 K/uL (1.0-5.5); LYMPHOCYTES % (AUTO) 40.5 % (20.5-51.5); MEAN CORPUSCULAR HEMOGLOBIN 35 pg (27-31); MEAN CORPUSCULAR HGB CONC 35 % (32-36); MEAN CORPUSCULAR VOLUME 100 fL (79.0-98.0); MONOCYTES # (AUTO) 0.7 K/uL (0.0-1.0); MONOCYTES % (AUTO) 9.3 % (1.7-9.3); NEUTROPHILS # (AUTO) 3.6 K/uL (1.8-7.7); NEUTROPHILS % (AUTO) 47.4 % (40.0-70.0); PLATELET COUNT (AUTO) 313 K/uL (130-430); RED BLOOD CELL COUNT(AUTO) 3.57 MIL/uL (4.2-6.2); RED CELL DISTRIBUTION WIDTH 12.8 % (9.0-15.0); WHITE BLOOD COUNT (AUTO) 7.6 K/uL (4.8-10.8)
--- NOTE | 2019-08-18 07:30 | NUR ---
AM ROUNDS: PATIENT SLEEPING AND WOKE UP.VITAL SIGNS TAKEN,AFEBRILE AND STABLE. DENIES ANY PAIN. NO ACUTE DISTRESS.
[2019-08-18 07:46] VITALS: BP_SYST 104
[2019-08-18 08:33] LABS: CREATININE 0.45 mg/dL (0.55-1.30); POTASSIUM 3.9 mmol/L (3.5-5.1)
[2019-08-18 10:54] VITALS: BP_SYST 101
--- NOTE | 2019-08-18 10:55 | NUR ---
Blood Sugar: Blood sugar taken,no insulin needed per sliding scale.
[2019-08-18] MEDS ORDERED: CHOLECALCIFEROL (VITAMIN D3) 2,000 UNIT TABLET PO ONE (11:30)
[2019-08-18] MEDS ORDERED: CALCIUM CARBONATE 500 MG/ TAB.CHEW PO SCH (12:30)
--- NOTE | 2019-08-18 14:35 | NUR ---
DC ORDER: PATIENT SEEN BY DR PEARSON WITH ORDERS DC HOME WITH HOME HEALTH FOR DISEASE MANAGEMENT.
[2019-08-18 15:02] VITALS: BP_SYST 113
--- NOTE | 2019-08-18 15:59 | NUR ---
MS Planning and assessment: The pt is being discharged to home with HH f/u for diabetes teaching. The pt does not want HH f/u stated he has diabetes for 13 years and well aware of s/s and how to manage his Lantus insulin. He wants to f/u with his endocrine and PCP. Pt stated he has been managing own insulin injection and blood sugar check up. Then he will adjust his intake accordingly. His blood sugar was either too high or too low for him to come to hp was rare. It happened last was 6 months and 2 years ago. The pt will be going to his parent's home upon discharged. -- DERECK Borrero, aware.
--- NOTE | 2019-08-18 17:15 | NUR ---
D/C Patient Patient given medication reconciliation form and D/C instructions. Exit Care provided. Patient verbalized understanding. MD discussed with patient the results and treatment provided. Ambulatory with steady gait for discharge to home. Patient in stable condition, ID band removed. IV catheter removed, intact and dressing applied, no active bleeding.Home health for disease management by ye Cristobal. Patient educated on pain management. All belongings sent with patient.Accompanied home by his girlfriend in stable condition.
[2019-08-19] MEDS ORDERED: CHOLECALCIFEROL (VITAMIN D3) 2,000 UNIT TABLET PO SCH (09:00)
== END 2019-08-18 17:14 | disposition home health service (06) | DRG 420 ==
LOC: SED 00:21 → STU 07:28 → SMU 08-17 16:21
PROVIDERS: ADMIT Internal Medicine; ATTEND Internal Medicine
DX: E11.00 Type 2 diabetes mellitus with hyperosmolarity without nonketotic hyperglycemic-hyperosmolar coma (NKHHC) (principal); E87.2 Acidosis; E87.8 Other disorders of electrolyte and fluid balance, not elsewhere classified; A08.4 Viral intestinal infection, unspecified; E86.0 Dehydration; R00.0 Tachycardia, unspecified; E87.1 Hypo-osmolality and hyponatremia
CPT/HCPCS: 36415; 36600; 71045; 80048; 80053; 80307; 81003; 82009-TC; 82803-TC; 82962; 83605; 83735-TC; 84100-TC; 84484; 85025; 87040-TC; 93005; 96372; 96374; 99285; G0378; J0696; J1815; J7060; J7120